=== PATIENT | female | born 1995 | race Caucasian/White ===

== ENCOUNTER → 2017-04-25 | Outpatient (CLI) | payer BC, OTHER ==
[~2017-04-25] MED LIST: AMOX50SU PO; DEPO INJECTION; ESOM20 PO; HYDPAM50 PO; IBUP800 PO; ISODICACE PO; PROP10 PO; Verotin-Gr Cap1 EACH PO
== END ==
LOC: LAB SHORT 10:44 → LAB 10:44
DX: Z34.00 Encounter for supervision of normal first pregnancy, unspecified trimester (principal)
CPT/HCPCS: 87081; 87653

== ENCOUNTER 2017-05-04 08:41 | Inpatient (IN) | payer BC, OTHER ==
[~2017-05-04] VITALS: Ht 165.1 cm; Wt 72.0 kg
[~2017-05-04 08:41] MED LIST changes: -HYDPAM50 PO; -IBUP800 PO; -Verotin-Gr Cap1 EACH PO
[2017-05-04 09:45] LABS: BASOPHILS ABSOLUTE AUTO 0.11 K/mm3 (0.00-0.23); BASOPHILS PERCENT AUTO 0 % (0-2); EOSINOPHILS ABSOLUTE AUTO 0.12 K/mm3 (0.00-0.68); EOSINOPHILS PERCENT AUTO 1 % (0-6); Hematocrit 40.8 % (33.0-51.0); Hemoglobin 13.7 g/dL (11.5-16.0); IMMATURE GRAN ABSOLUTE AUTO 0.32 K/mm3 (0.00-0.10); IMMATURE GRAN PERCENT AUTO 1 % (0-1); LYMPHOCYTES ABSOLUTE AUTO 2.47 K/mm3 (0.84-5.20); LYMPHOCYTES PERCENT AUTO 10 % (21-46); MONOCYTES PERCENT AUTO 11 % (4-13); Mean Corpuscular HGB 31.1 pg (26.0-34.0); Mean Corpuscular HGB Conc 33.6 g/dL (31.5-36.5); Mean Corpuscular Volume 93 fL (80-100); NEUTROPHILS ABSOLUTE AUTO 19.09 K/mm3 (1.96-9.15); NEUTROPHILS PERCENT AUTO 77 % (41-73); Platelet Count 248 K/mm3 (150-400); RDW Coefficient Variation 12.9 % (11.7-14.2); RDW Standard Deviation 43.5 fL (35.1-46.3); Red Blood Cell Count 4.41 M/mm3 (3.80-5.20); White Blood Cell Count 24.81 K/mm3 (4.00-11.30)
[2017-05-04] MEDS ORDERED: HYDPAM50 PO (10:00)
[2017-05-04] MEDS ORDERED: Verotin-Gr Cap1 EACH PO (10:00)
[2017-05-05 06:20] LABS: Hematocrit 37.2 % (33.0-51.0); Hemoglobin 12.1 g/dL (11.5-16.0); Mean Corpuscular HGB 30.4 pg (26.0-34.0); Mean Corpuscular HGB Conc 32.5 g/dL (31.5-36.5); Mean Corpuscular Volume 94 fL (80-100); Mean Platelet Volume 10.5 fL (9.1-12.4); Platelet Count 229 K/mm3 (150-400); RDW Coefficient Variation 13.1 % (11.7-14.2); RDW Standard Deviation 44.8 fL (35.1-46.3); Red Blood Cell Count 3.98 M/mm3 (3.80-5.20); White Blood Cell Count 20.39 K/mm3 (4.00-11.30)
[2017-05-05] MEDS ORDERED: IBUP800 PO (11:10)
== END 2017-05-05 16:15 | disposition home or self-care (01) | DRG 775 ==
LOC: OBS 08:41 → BC 08:43 → OBS 09:09 → BC 09:10
PROVIDERS: Obstetrics & Gynecology
PROC: 10E0XZZ Delivery of Products of Conception, External Approach (ICD-10-PCS; principal; 2017-05-04)
PROC: 0KQM0ZZ Repair Perineum Muscle, Open Approach (ICD-10-PCS; 2017-05-04)
DX: O99.824 Streptococcus B carrier state complicating childbirth (principal); Z37.0 Single live birth; O70.1 Second degree perineal laceration during delivery; Z3A.37 37 weeks gestation of pregnancy
CPT/HCPCS: 36415; 59025; 81003; 85025; 85027; J0290; J1885; J2590; J3010; J7120